=== PATIENT | male | born 1980 | race Hispanic/Latino ===

== ENCOUNTER 2022-02-24 17:06 | Emergency (ER) | payer BC ==
--- OUTSIDE RECORDS SUMMARY | 2022-02-24 17:09 | XMS REPORT | Continuity of Care Document ---
:1980 Author Organization [facility] t Address [address] [place] [address] Care Team Providers Name Role Phone PCP, PATIENT DOES NOT HAVE A Primary Care Physician UnavailWOLF Soto Attending Clinician Unavailable UNKNOWN, ATTENDING Attending Clinician Unavailable Chelsey Wise DO Attending Clinician Jens RAMOS, Alex Flores Attending Clinician Barbara Moctezuma MA Attending Clinician Unavailable Syk RAMOS, Stevan Martinez Attending Clinician [phone] Payers Payer Name Policy Type Policy Number Effective Date Expiration Date S [facility] BCBSTX PPO AND [id number] 2020 00:00:00 OUT OF STATE BCBS [facility] [id number] 2021 00:00:00 Problems Condition Condition Condition Status Onset Resolution Last Treating Co mments Source Name Details Category Date Date Treatment Clinician Date Bipolar Bipolar Disease Active Methodi disorder disorder 7-20 st in full in full 00:00: Hospita remission remission 00 l Chronic Chronic Disease Active Methodi bilateral bilateral 7-20 st low back low back 00:00: Hospit a pain pain 00 l without without sciatica sciatica Allergies, Adverse Reactions, Alerts Allergy Allergy Status Severity Reaction(s) Onset Inactive Treating Comm ents Source Name Type Date Date Clinician NO KNOWN Drug Active Univers ALLERGIE Class ity of S [facility] Family History Family Member Diagnosis Comments Start Date Stop Date Source Natural father Multiple myeloma [facility] Natural father Kidney disease Method [facility] Maternal grandfather [facility] Maternal grandmother [facility] Natural mother Hyperlipidemia Method [facility] Paternal grandfather Diabetes [facility] Paternal grandmother Diabetes [facility] Paternal grandmother Stroke [facility] Paternal uncle Stroke [facility] Natural brother GERD [facility] Social History Social Habit Start Date Stop Date Quantity Comments Source Tobacco use and 2021-10-31 2021-10-31 Smokeless tobacco [facility] exposure 00:00:00 00:00:00 non-user Hospital Alcohol intake 2021-10-31 2021-10-31 .86 /d [facility] 00[facility]00 [facility] Sex [facility]igned At [birth year] [facility] Smoking Status Start Date Stop Date Source Never smoked tobacco [facility] Medications Ordered Filled Start Stop Current Ordering Indication Dosage Frequency Signature Comments Components Source Medication Medication Date Date Medication? Clinician (SIG) Name Name ARIPiprazol Yes TK 1 T PO M ethodi e (ABILIFY) 6-[address] 2 MG tablet 00:00: Hospit a 00 l ARIPiprazol 2018-0 2021- No TK 1 T PO Methodi e (ABILIFY) 6-14 01-[address] 2 MG tablet 00:00: 00:00 Hospi ta 00 :00 l Immunizations Ordered Immunization Filled Immunization Date Status Commen ts Source Name Name [employer] COVID-19 MRNA 2020-09-23 Completed [facility] VACCINATION 00:00:00 [facility] Covid-19 Vaccine 2020-08-[address] [facility] MRNA (PF) 12yr+ 00:00:00 Medical C enter (Pfizer/BioNTech)(IM M601) Covid-19 Vaccine 2020-08-[address] [facility] Mrna (Pf) 00:00:00 [facility] Center (Pfizer/biontech) Covid-19 Vaccine 2020-08-[address] [facility] MRNA (PF) 12yr+ 00:00:00 Medical C enter (Pfizer/BioNTech)(IM M601) Vital Signs Vital Name Observation Time Observation Value Comments Source Body weight 2021-10-31 17:45:00 75.751 kg [facility] BMI 2021-10-31 17:45:00 24.66 kg/m2 [facility] Oxygen saturation in 2021-10-31 17:45:00 98 /min [facility] Arterial blood by Pulse oximetry Systolic blood 2021-10-31 17:45:00 124 mm[Hg] Method [facility] pressure Diastolic blood 2021-10-31 17:45:00 86 mm[Hg] [facility] pressure Heart rate 2021-10-31 17:45:00 79 /min [facility] Body temperature 2021-10-31 17:45:00 36.72 Ana [facility] Body height 2021-10-31 17:45:00 175.3 cm [facility] Systolic blood 2020-10-07 15:22:00 127 mm[Hg] Method [facility] pressure Diastolic blood 2020-10-07 15:22:00 87 mm[Hg] [facility] pressure Heart rate 2020-10-07 15:22:00 77 /min [facility] Body temperature 2020-10-07 15:22:00 36.89 Ana [facility] Respiratory rate 2020-10-07 15:22:00 16 /min [facility] Body height 2020-10-07 15:22:00 175.3 cm [facility] Body weight 2020-10-07 15:22:00 77.565 kg [facility] BMI 2020-10-07 15:22:00 25.25 kg/m2 [facility] Oxygen saturation in 2020-10-07 15:22:00 97 /min [facility] Arterial blood by Pulse oximetry Procedures Procedure Date / Time Performing Clinician Source Performed CBC WITH PLATELET AND 2021-10-31 18:08:00 Chelsey Wise [facility] DIFFERENTIAL COMPREHENSIVE METABOLIC 2021-10-31 18:08:00 Chelsey Wise [facility] PANEL URINALYSIS, AUTOMATED 2021-10-31 18:08:00 Chelsey Wise [facility] WITH MICROSCOPY HEMOGLOBIN A1C 2021-10-31 18:08:00 Chelsey Wise ospital LIPID PANEL 2021-10-31 18:08:00 [facility] TSH REFLEX TO T4F 2021-10-31 18:08:00 [facility] VITAMIN D 25 HYDROXY 2021-10-31 18:08:00 [facility] LEVEL PSA, TOTAL AND FREE 2021-10-31 18:08:00 [facility] HEPATITIS C ANTIBODY 2021-10-31 18:08:00 [facility] MICROSCOPIC EXAMINATION 2021-10-31 18:08:00 DanilomaChelsey [facility] US ABDOMINAL LIMITED 2021-03-03 19:59:01 [facility] COMPREHENSIVE METABOLIC 2021-03-03 15:30:00 [facility] PANEL CBC WITH PLATELET AND 2021-03-03 15:30:00 [facility] DIFFERENTIAL URINALYSIS, COMPLETE, 2021-03-03 15:30:00 [facility] WITH REFLEX TO CULTURE MICROSCOPIC EXAMINATION 2021-03-03 15:30:00 [facility] TESTOSTERONE LEVEL, FREE 2020-10-07 16:41:00 [facility] AND TOTAL, MALE CBC WITH PLATELET AND 2020-10-07 16:41:00 [facility] DIFFERENTIAL COMPREHENSIVE METABOLIC 2020-10-07 16:41:00 [facility] PANEL HEMOGLOBIN A1C 2020-10-07 16:41:00 [facility] LIPID PANEL 2020-10-07 16:41:00 [facility] TSH REFLEX TO T4F 2020-10-07 16:41:00 [facility] URINALYSIS, COMPLETE, 2020-10-07 16:41:00 [facility] WITH REFLEX TO CULTURE MICROSCOPIC EXAMINATION 2020-10-07 16:41:00 [facility] Plan of Care Planned Activity Planned Date Details Comments Source Future Scheduled 2021-11-12 HEPATITIS B VACCINES [facility] Test 17:23:52 (1 of 3 - 3-dose series) [code = HEPATITIS B VACCINES (1 of 3 - 3-dose series)] Future Scheduled 2021-11-12 COVID-19 VACCINE (3 [facility] Test 17:23:52 - Booster for Pfizer series) [code = COVID-19 VACCINE (3 - Booster for Pfizer series)] Future Scheduled 2021-11-12 INFLUENZA VACCINE [facility] Test 17:23:52 [code = INFLUENZA VACCINE] Future Scheduled 2021-10-[address] [facility] Test 00:00:00 (#1) [code = [facility] INFLUENZA VACCINE (#1)] Future Scheduled 2021-10-[address] [facility] Test 00:00:00 (#1) [code = [facility] INFLUENZA VACCINE (#1)] Future Scheduled 2021-02-[address] [facility] Test 00:00:00 (12+) [code = [facility] DEPRESSION SCREENING (12+)] Future Scheduled 2021-02-[address] [facility] Test 00:00:00 (12+) [code = [facility] DEPRESSION SCREENING (12+)] Future Scheduled 2020-10-[address] [facility] Test 00:00:00 (#1) [code = [facility] INFLUENZA VACCINE (#1)] Future Scheduled 2020-09-06 COVID-19 VACCINE ([address] [facility] Test 00:00:00 - Pfizer series) [facility] [code = COVID-19 VACCINE (2 - Pfizer series)] Future Scheduled 2020-09-06 COVID-19 VACCINE ([address] [facility] Test 00:00:00 - Pfizer series) [facility] [code = COVID-19 VACCINE (2 - Pfizer series)] Future Scheduled 2020-09-06 COVID-19 VACCINE ([address] [facility] Test 00:00:00 - Pfizer 2-dose Medical Cent er series) [code = COVID-19 VACCINE (2 - Pfizer 2-dose series)] Future Scheduled 2020-02-[address] [facility] Test 00:00:00 (12+) [code = [facility] DEPRESSION SCREENING (12+)] Future Scheduled 2014-07-[address] [facility] Test 00:00:00 (procedure) [code = [facility] [id number]] Future Scheduled 2014-07-[address] [facility] Test 00:00:00 (procedure) [code = [facility] [id number]] Future Scheduled 2014-07-[address] [facility] Test 00:00:00 (procedure) [code = [facility] [id number]] Future Scheduled 1998-07-24 DTAP/TDAP/TD [facility] Test 00:00:00 VACCINES (1 - Tdap) Medical Center [code = DTAP/TDAP/TD VACCINES (1 - Tdap)] Future Scheduled 1998-07-24 DTAP/TDAP/TD [facility] Test 00:00:00 VACCINES (1 - Tdap) Medical Center [code = DTAP/TDAP/TD VACCINES (1 - Tdap)] Future Scheduled 1998-07-24 DTAP/TDAP/TD [facility] Test 00:00:00 VACCINES (1 - Tdap) Medical Center [code = DTAP/TDAP/TD VACCINES (1 - Tdap)] Future Scheduled 1997-07-[address] [facility] Test 00:00:00 SCREENING [code = Medical Ce nter HEPATITIS C SCREENING] Future Scheduled 1997-07-[address] [facility] Test 00:00:00 SCREENING [code = Medical Ce nter HEPATITIS C SCREENING] Future Scheduled 1997-07-[address] [facility] Test 00:00:00 SCREENING [code = Medical Ce nter HEPATITIS C SCREENING] Future Scheduled [address] [facility] Test 00:00:00 [facility] Scre[facility] (12+) [code = Tobacco Cessation Counseling and Screening (12+)] Future Scheduled [facility] Test screening (procedure) [code = 499295139] Future Scheduled COVID-19 VACCINE (2 [facility] Test - Pfizer 2-dose series) [code = COVID-19 VACCINE (2 - Pfizer 2-dose series)] Future Scheduled INFLUENZA VACCINE [facility] Test [code = INFLUENZA VACCINE] Encounters Start End Encounter Admission Attending Care Care Encounter Source Date/Time Date/Time Type Type Clinicians Facility Department ID 2021-11-13 Outpatient [facility] [id number] [place] 11:29:22 [id number] [facility] 2021-01-23 Outpatient FRANK [facility] [id number] [place] 08:32:48 [facility] 2021-01-19 Outpatient HAFLEZ, [facility] [id number] [place] 10:24:03 [facility] 2020-10-25 Outpatient HATERRELL, [facility] [id number] [place] 10:45:39 [facility] 2022-02-24 2022-02-24 Outpatient R MIREYA, [facility] [id number] Univers 16:30:00 16:30:00 ATTENDING ity [facility] 2021-12-01 2021-12-01 Outpatient HATERRELL, [facility] [id number] [place] 09:30:00 09:30:00 [facility] 2021-10-31 2021-10-31 Office Chelsey Wise 1.2.840.1 [id number] Methodi 13:00:00 13:16:18 Visit Omer [id number] 3.430.2.7 Hospit a .3.874474 l .8 2021-10-31 2021-10-31 Travel 1.2.840.1 [id number] [id number] Methodi 00:00:00 00:00:[address] 3.430.2.7 0.2.7.3.698 Ho spita .3.649814 084.8 l .8 2021-03-07 2021-03-07 Travel 1.2.840.1 1.2.879.594 [id number] Methodi 00:00:00 00:00:[address] 3.430.2.7 0.2.7.3.698 Ho spita .3.616379 084.8 l .8 2021-03-03 2021-03-03 Office Jens 1.2.840.1 [id number] Methodi 08:30:00 09:32:03 Visit Alex Mark 53795.1.[address] 3.430.2.7 Hospit a .3.031148 l .8 2021-03-03 2021-03-03 Orders Blacher, 1.2.840.1 [id number] Methodi 00:00:00 00:00:00 Only Alex Flores 53545.1.[address] 3.430.2.7 Hospit a .3.505644 l .8 2021-03-03 2021-03-03 Orders Moctezuma, 1.2.840.1 [id number] Methodi 00:00:00 00:00:00 Only Barbara 01272.1.[address] 3.430.2.7 Hospit a .3.935739 l .8 2020-10-07 2020-10-07 Office Jens, 1.2.840.1 [id number] Methodi 10:01:39 11:50:08 Visit Alex Flores 07914.1.[address] 3.430.2.7 Hospit a .3.161581 l .8 2020-08-16 2020-08-16 [facility] [id number] 12:52:33 12:55:15 on [facility] 2020-08-16 2020-08-16 Outpatient [facility] [id number] [facility] 00:00:00 00:00:00 Results Test Description Test Time Test Comments Results Result Comments Source Hemoglobin A1c 2021-11-01 14:11:00 Test Item Value Reference Range Interpretation Comme nts Hemoglobin A1C (test code 5.6 % 4.8-5.6 P rediabetes: 5.7 - 6.4 = 4548-4) Diabetes: >6.4 Glycemic control for tony lts with diabetes: <7.0 HARSHAL (test code = HARSHAL) Performed at: [facility] [id number] Director: Vick Galeano MD, Phone: [phone] [facility] [id number] 13:12:00 Test Item Value Reference Range Interpretation Comments Glucose (test code = 101 mg/dL 65-99 H 2345-7) BUN (test code = 13 mg/dL 6-24 3094-0) Creatinine (test code 0.91 mg/dL 0.76-1.27 = 2160-0) eGFR (test code = 108 mL/min/1.73 See_Comment [Autom ated 8257) message] The system which generated this result transmitted reference range : >=59. The reference range was not used to interpret this result as normal/abnormal . BUN/creatinine ratio 9-20 (test code = 3097-3) Sodium (test code = 142 mmol/L 243-154 6939-2) Potassium (test code 4.9 mmol/L 3.5-5.2 = 2823-3) Chloride (test code = 103 mmol/L 96-106 2075-0) CO2 (test code = 25 mmol/L 20-29 2027-9) Calcium (test code = 9.7 mg/dL 8.7-10.2 12558-9) Protein (test code = 7.4 g/dL 6-8.5 2885-2) Albumin, S (test code 4.9 g/dL 4-5 = 1751-7) Globulin, total (test 2.5 g/dL 1.5-4.5 code = 81567-9) Albumin/globulin 1.2-2.2 ratio (test code = 1759-0) Total bilirubin (test 0.4 mg/dL 0-1.2 code = 1974-2) Alkaline phosphatase See_Comment [Autom ated (test code = 6768-6) message ] The system which generated this result transmitted reference range : 44 - 121 IU/L. The reference range was not used to interpr et this result as normal/abnormal . AST (test code = See_Comment [Automated 1919-09) message] The system which generated this result transmitted reference range : 0 - 40 IU/L. Th e reference range was not used to interpret this result as normal/abnormal . ALT (test code = See_Comment [Automated 1741-) message] The system which generated this result transmitted reference range : 0 - 44 IU/L. Th e reference range was not used to interpret this result as normal/abnormal . HARSHAL (test code = HARSHAL) Performed at: [facility] [id number] Director: Vick Galeano MD, Phone: [phone] Lab Interpretation Abnormal (test code = 80555-6) [facility]enton[facility] [id number] 13:12:00 Test Item Value Reference Range Interpretation Comments Cholesterol (test 238 mg/dL 100-199 H code = 2093-3) Triglycerides (test 197 mg/dL 0-149 H code = 2571-8) HDL cholesterol (test 42 mg/dL See_Comment [Auto mated code = 2085-9) message] The system which generated this result transmitted reference range : >=39. The reference range was not used to interpret this result as normal/abnormal . VLDL cholesterol yunior 36 mg/dL 5-40 (test code = 28984-5) LDL Chol Calc ([facility]) 160 mg/dL 0-99 H (test code = 76344-2) Non-HDL cholesterol 196 mg/dL 0-129 H (test code = 06602-6) HARSHAL (test code = HARSHAL) Performed at: [facility] [id number] Director: Vick Galeano MD, Phone: [phone] Lab Interpretation Abnormal (test code = 69393-6) [facility], total and [id number] 13:12:00 Test Item Value Reference Range Interpretation Comments PSA (test code 0.7 ng/mL 0-4 Gopi ECLIA = 2857-1) methodology.Acc ording to the [place] [employer], Se rum PSA shoulddecrease and remain at undet ectable levels after radicalprostate ctomy. The AUA defines biochemical rec urrence as an initialPS A value 0.2 ng/mL or gr eater followed by a subsequent confirmatoryPSA value 0.2 ng/mL or greater.Values obtained with different assay methods or kits cannot be usedinterchange ably. Results cannot be interpreted as absolute eviden ceof the presence or absence of mustapha gnant disease. PSA, free (test 0.13 ng/mL N/A Gopi ECLIA code = 82447-5) methodology. PSA, free 18.6 % The table below lists percent (test the probabilit y of code = 05701-8) prostate can cer formen with non-suspic ious CRUZITO results and total PSA between4 an d 10 ng/mL, by patie nt age (Newton et al , MERCEDES 1998,279:1542). % Free PSA 50-64 yr 65 -75 yr 0.00-10.00% 56% 55% 10.01-15.00% 24 % 35% 15.01-20.00% 17 % 23% 20.01-25.00% 10 % 20% >25.00% 5% 9%Pl ease note: Newton et al did not make sp ecific recommendations regarding the u se of percent free PS A for any other popul ation of men. HARSHAL (test code Performed at: 01 = HARSHAL) - [facility] [id number] [place], [place] [id number] Director: Vick Galeano MD, Phone: [phone] [facility] with platelet and [id number] 13:12:00 Test Item Value Reference Range Interpretation Comments WBC (test code = See_Comment [Automated 0231-2) message] The system which generated this result transmit melissa reference range : 3.4 - 10.8 x10E3/uL. The reference range was not used to interpret this result as normal/abnormal . RBC (test code = See_Comment [Automated 211-8) message] The system which generated this result transmit melissa reference range : 4.14 - 5.80 x10E6/uL. The reference range was not used to interpret this result as normal/abnormal . HGB (test code = 14.6 g/dL 13-17.7 718-7) HCT (test code = 43.1 % 37.5-51 4544-3) MCV (test code = 90 fL 79-97 787-2) MCH (test code = 30.6 pg 26.6-33 785-6) MCHC (test code = 33.9 g/dL 31.5-35.7 786-4) RDW (test code = 13.1 % 11.6-15.4 788-0) Platelet count See_Comment [Automated (test code = 117-3) message] The system which generated this result transmit melissa reference range : 150 - 450 x10E3/uL. The reference range was not used to interpret this result as normal/abnormal . Neutrophils (test 64 % Not Estab. code = 770-8) Lymphocytes (test 26 % Not Estab. code = 736-9) Monocytes (test 8 % Not Estab. code = 5905-5) Eosinophils (test 1 % Not Estab. code = 713-8) Basophils (test 0 % Not Estab. code = 706-2) Neutrophils, See_Comment [Automated absolute (test code message] The = 751-8) system which generated this result transmit melissa reference range : 1.4 - 7.0 x10E3/uL. The reference range was not used to interpret this result as normal/abnormal . Lymphocytes, See_Comment [Automated absolute (test code message] The = 731-0) system which generated this result transmit melissa reference range : 0.7 - 3.1 x10E3/uL. The reference range was not used to interpret this result as normal/abnormal . Monocytes, absolute See_Comment [Automa melissa (test code = 742-7) message] The system which generated this result transmit melissa reference range : 0.1 - 0.9 x10E3/uL. The reference range was not used to interpret this result as normal/abnormal . Eosinophils, See_Comment [Automated absolute (test code message] The = 711-2) system which generated this result transmit melissa reference range : 0.0 - 0.4 x10E3/uL. The reference range was not used to interpret this result as normal/abnormal . Basophils, absolute See_Comment [Automa melissa (test code = 704-7) message] The system which generated this result transmit melissa reference range : 0.0 - 0.2 x10E3/uL. The reference range was not used to interpret this result as normal/abnormal . Immature 1 % Not Estab. granulocytes (test code = 67079-1) Immature See_Comment [Automated granulocytes, message] The absolute (test code system w [facility] = 33710-5) generated this result transmit melissa reference range : 0.0 - 0.1 x10E3/uL. The reference range was not used to interpret this result as normal/abnormal . HARSHAL (test code = Performed at: HARSHAL) - [facility] [address] [id number] Director: Vick Galeano MD, Phone: [phone] [facility], automated with [id number] 13:12:00 Test Item Value Reference Range Interpretation Comments Specific gravity, 1.005-1.03 urine (test code = 5811-5) pH, urine (test 5-7.5 code = 5803-2) Color, UA (test Yellow Yellow code = 5778-6) Appearance (test Clear Clear code = 5767-9) WBC esterase, urine Negative Negative (test code = 5799-2) Protein, UA (test Negative Negative/Trace code = 50103-0) Glucose, urine Negative Negative (test code = 46856-2) Ketones, UA (test Negative Negative code = 2514-8) Occult blood, urine Negative Negative (test code = 5794-3) Bilirubin, UA (test Negative Negative code = 5770-3) Urobilinogen, UA 0.2 mg/dL 0.2-1 (test code = 39725-1) Nitrite, UA (test Negative Negative code = 5802-4) Microscopic See below: Microscopic was examination (test indicated and was code = 71986-3) performed. HARSHAL (test code = Performed at: HARSHAL) - [facility] [address] [id number] Director: Vick Galeano MD, Phone: [phone] [facility]enton[facility]it[facility] D 25 hydroxy [id number] 13:12:00 Test Item Value Reference Range Interpretation Comments Vitamin D, 16.3 ng/mL 30-100 L Vitamin D 25-hydroxy (test deficiency has been code = 00269-0) defined by [facility] [place] [facility] and an Endocrine Socie ty practice guidel ine as alevel of se rum 25-OH vitamin D less than 20 ng /mL (1,2).The Endoc rine Society went on to further define vitamin Dinsufficiency as a level between 2 1 and 29 ng/mL (2 ).1. IOM ([place] of Medicine). 2010 . Dietary referen ce intakes for yunior cium and D. [place]: The [employer] .2. Ramiro MF, Angelo herrera [place], Pauline carrasco BUCIO, et al. Evaluation, treatment, and prevention of vitamin D deficiency: an Endocrine Socie ty clinical practi ce guideline. JCEM . 2010; 96(7):1911-30. HARSHAL (test code = Performed at: HARSHAL) - [facility] [address] [place], [place] [id number] Director: Vick Galeano MD, Phone: [phone] Lab Interpretation Abnormal (test code = 41253-1) [facility]enton[facility]atitis C [id number] 13:12:00 Test Item Value Reference Range Interpretation Comments Hepatitis C Ab <0.1 See_Comment Negative: < 0.8 (test code = Indeterminate: 0.8 - 10619-8) 0.9 Positive: > 0.9 HCV antibody al one does not differentiate between previou s resolved infect ion and active infection. The CDC and current cli nical guidelines chase mmend that a positive HCV antibody result be followed up wit h an HCV RNA test to support the diagnosis of ac jessica HCV infection. [facility] offers Hepatitis C Vir us (HCV) RNA, Diagnosis, KAILA (236638) and Hepatitis C Vir us (HCV) Antibody with reflex to Quantitative Real-time PCR (738698). [Auto mated message] The sy stem which generated this result transmit melissa reference range : 0.0 - 0.9 s/co rati o. The reference r yenni was not used to interpret this result as normal/abnormal . HARSHAL (test code = Performed at: 01 HARSHAL) - [facility] [address] [id number] Director: Vick Galeano MD, Phone: [phone] [facility]enton[facility]sc[facility] [id number] 13:12:00 Test Item Value Reference Range Interpretation Comments WBC, UA (test code None seen See_Comment [Automat ed = 5821-4) message] The system which generated this result transmit melissa reference range : 0 - 5 /hpf. The reference range was not used to interpret this result as normal/abnormal . RBC, UA (test code None seen See_Comment [Automat ed = 38290-8) message] The system which generated this result transmit melissa reference range : 0 - 2 /hpf. The reference range was not used to interpret this result as normal/abnormal . Epithelial cells None seen See_Comment [Automated (non renal) (test message] T he code = 5787-7) system which generated this result transmit melissa reference range : 0 - 10 /hpf. The reference range was not used to interpret this result as normal/abnormal . Casts (test code = None seen None seen /lpf 10755-5) Bacteria, UA (test None seen None seen/Few code = 5769-5) HARSHAL (test code = Performed at: - ) [facility] [id number] Director: Vick Galeano MD, Phone: [phone] [facility] reflex to [id number] 13:12:00 Test Item Value Reference Range Interpretation Comments TSH (test code See_Comment [Automated m essage] = 07496-3) The system [employer] generated this result transmit melissa reference range : 0.450 - 4.500 uIU/mL. The reference range was not used to interpret this result as normal/abnormal . HARSHAL (test code Performed at: - = HARSHAL) [facility] [id number] Director: Vick Galeano MD, Phone: [phone] [facility]entonURINALYSIS, COMPLETE, WITH REFLEX TO [id number] 14:11:00 Test Item Value Reference Range Interpretation Comments Specific gravity, 1.005-1.03 urine (test code = 2965-2) pH, urine (test 5-7.5 code = 5803-2) Color, UA (test Yellow Yellow code = 5778-6) Appearance (test Clear Clear code = 5767-9) WBC esterase, urine Negative Negative (test code = 5799-2) Protein, UA (test Negative Negative/Trace code = 37214-9) Glucose, urine Negative Negative (test code = 2349-9) Ketones, UA (test Negative Negative code = 2514-8) Occult blood, urine Negative Negative (test code = 5794-3) Bilirubin, UA (test Negative Negative code = 5770-3) Urobilinogen, UA 0.2 mg/dL 0.2-1 (test code = 04331-7) Nitrite, UA (test Negative Negative code = 5802-4) Microscopic See below: Microscopic was examination (test indicated and was code = 79562-0) performed. Urinalysis reflex Comment This speci men will (test code = 2386) not refle x to a Urine Culture. HARSHAL (test code = Performed at: HARSHAL) - [facility] [id number] Director: Vick Galeano MD, Phone: [phone] [facility] and total, [id number] 17:09:00 Test Item Value Reference Range Interpretation Comments Testosterone (test 292 ng/dL 264-916 Adult mal e code = 2986-8) reference interval is bas ed on a population ofhealthy nonobese males (BMI <30) betwe en 19 and 39 years old.Ursula, et.al. JCEM 2017,102;1161-1 17 3. PMID: [id number]. Testosterone, free 7.4 pg/mL 6.8-21.5 (test code = 2991-8) HARSHAL (test code = Performed at: 01 HARSHAL) - [facility] [address] [id number] Director: Vick Galeano MD, Phone: [phone] ed at: 02 - [facility] [id number] Director: Sandra Montaño MD, Phone: [phone] [facility] DentonHemoglobin [id number] 15:10:00 Test Item Value Reference Range Interpretation Comments Hemoglobin A1C 5.3 % 4.8-5.6 Prediabetes: (test code = 5.7 - 6.4 4548-4) Diabetes: >6.4 Glycemic contro l for adults with diabetes: <7.0 HARSHAL (test code = Performed at: - HARSHAL) [facility] [address] [id number] Director: Vick Galeano MD, Phone: [phone] [facility] [id number] 15:10:00 Test Item Value Reference Range Interpretation Comments WBC, UA (test code None seen See_Comment [Automat ed = 5821-4) message] The system which generated this result transmit melissa reference range : 0 - 5 /hpf. The reference range was not used to interpret this result as normal/abnormal . RBC, UA (test code None seen See_Comment [Automat ed = 77489-0) message] The system which generated this result transmit melissa reference range : 0 - 2 /hpf. The reference range was not used to interpret this result as normal/abnormal . Epithelial cells None seen See_Comment [Automated (non renal) (test message] T he code = 5787-7) system which generated this result transmit melissa reference range : 0 - 10 /hpf. The reference range was not used to interpret this result as normal/abnormal . Casts (test code = None seen None seen /lpf 84708-6) Bacteria, UA (test None seen None seen/Few code = 5769-5) HARSHAL (test code = Performed at: ) [facility] [id number] Director: Vick Galeano MD, Phone: [phone] [facility], COMPLETE, WITH REFLEX TO [id number] 15:10:00 Test Item Value Reference Range Interpretation Comments Specific gravity, 1.005-1.030 urine (test code = 2965-2) pH, urine (test 5.0-7.5 code = 5803-2) Color, UA (test Yellow Yellow code = 5778-6) Appearance (test Clear Clear code = 5767-9) WBC esterase, urine Negative Negative (test code = 5799-2) Protein, UA (test Negative Negative/Trace code = 14034-4) Glucose, urine Negative Negative (test code = 2349-9) Ketones, UA (test Negative Negative code = 2514-8) Occult blood, urine Negative Negative (test code = 5794-3) Bilirubin, UA (test Negative Negative code = 5770-3) Urobilinogen, UA 0.2 mg/dL 0.2-1.0 (test code = 05288-2) Nitrite, UA (test Negative Negative code = 5802-4) Microscopic See below: Microscopic was examination (test indicated and was code = 10978-4) performed. Urinalysis reflex Comment This speci men will (test code = 2386) not refle x to a Urine Culture. HARSHAL (test code = Performed at: HARSHAL) - [facility] [address] [id number] Director: Vick Galeano MD, Phone: [phone] [facility] reflex to [id number] 07:07:00 Test Item Value Reference Range Interpretation Comments TSH (test code See_Comment [Automated m essage] = 55574-7) The system whic h generated this result transmit melissa reference range : 0.450 - 4.500 uIU/mL. The reference range was not used to interpret this result as normal/abnormal . HARSHAL (test code Performed at: 01 - = HARSHAL) [facility] [address] [place], [place] [id number] Director: Vick Galeano MD, Phone: [phone] [facility] DentonComprehensive metabolic [id number] 06:07:00 Test Item Value Reference Interpretation Comments Range Glucose (test code = 95 mg/dL 65-99 2345-7) BUN (test code = 10 mg/dL 6-24 3094-0) Creatinine (test 0.95 mg/dL 0.76-1.27 code = 2160-0) EGFR Non-Afr. 99 mL/min/1.73 >59 Malaysian (test code = 2775) EGFR 114 mL/min/1.73 >59 [facility] cu rrently Malaysian (test code reports eGFR in = 2774) compliance with the current recommendations of the [employer]. Lab anais will update reporting as ne w guidelines are published from the NKF-ASN Task fo rce. BUN/creatinine ratio 9-20 (test code = 3097-3) Sodium (test code = 138 mmol/L 655-127 3732-2) Potassium (test code 4.4 mmol/L 3.5-5.2 = 2823-3) Chloride (test code 100 mmol/L 96-106 = 2075-0) CO2 (test code = 22 mmol/L 20-29 8-9) Calcium (test code = 9.6 mg/dL 8.7-10.2 29982-6) Protein (test code = 7.8 g/dL 6.0-8.5 2885-2) Albumin, S (test 4.7 g/dL 4.0-5.0 code = 1751-7) Globulin, total 3.1 g/dL 1.5-4.5 (test code = 53086-7) Albumin/globulin 1.2-2.2 ratio (test code = 1759-0) Total bilirubin 0.4 mg/dL 0.0-1.2 (test code = 1975-2) Alkaline phosphatase See_Comment [Autom ated message] (test code = 6768-6) The s tem which generated this result transmit melissa reference range : 48 - 121 IU/L. The reference range was not used to interpret this result as normal/abnormal . AST (test code = See_Comment [Automated message] 1920-8) The system ic [employer] generated this result transmit melissa reference range : 0 - 40 IU/L. The reference range was not used to interpret this result as normal/abnormal . ALT (test code = See_Comment H [Automated message] 1742-6) The system [employer] generated this result transmit melissa reference range : 0 - 44 IU/L. The reference range was not used to interpret this result as normal/abnormal . HARSHAL (test code = Performed at: HARSHAL) - [facility] [id number] Director: Vick Galeano MD, Phone: [phone] Lab Interpretation Abnormal (test code = 35944-6) [facility] DentonLipid [id number] 06:07:00 Test Item Value Reference Range Interpretation Comments Cholesterol (test code = 224 mg/dL 100-199 H 3-3) Triglycerides (test code 328 mg/dL 0-149 H = 2571-8) HDL cholesterol (test 37 mg/dL >39 L code = 2085-9) VLDL cholesterol yunior 59 mg/dL 5-40 H (test code = 37506-4) LDL Chol Calc (NIH) (test 128 mg/dL 0-99 H code = 89020-7) Non-HDL cholesterol (test 187 mg/dL 0-129 H code = 07703-9) HARSHAL (test code = HARSHAL) Performed at: - [facility] [address] [id number] Director: Vick Galeano MD, Phone: [phone] Lab Interpretation (test Abnormal code = 71596-7) [facility] DentonCB with platelet and [id number] 05:06:00 Test Item Value Reference Range Interpretation Comments WBC (test code = See_Comment H [Automated 7781-2) message] The system which generated this result transmitted reference range : 3.4 - 10.8 x10E3/uL. The reference range was not used to interpret this result as normal/abnormal . RBC (test code = See_Comment [Automated 819-8) message] The system which generated this result transmitted reference range : 4.14 - 5.80 x10E6/uL. The reference range was not used to interpret this result as normal/abnormal . HGB (test code = 14.9 g/dL 13.0-17.7 718-7) HCT (test code = 42.8 % 37.5-51.0 4544-3) MCV (test code = 91 fL 79-97 787-2) MCH (test code = 31.6 pg 26.6-33.0 785-6) MCHC (test code = 34.8 g/dL 31.5-35.7 786-4) RDW (test code = 13.8 % 11.6-15.4 788-0) Platelet count (test See_Comment [Autom ated code = 777-3) message] The system which generated this result transmitted reference range : 150 - 450 x10E3/uL. The reference range was not used to interpret this result as normal/abnormal . Neutrophils (test 74 % Not Estab. code = 770-8) Lymphocytes (test 18 % Not Estab. code = 736-9) Monocytes (test code 6 % Not Estab. = 5905-5) Eosinophils (test 0 % Not Estab. code = 713-8) Basophils (test code 1 % Not Estab. = 706-2) Neutrophils, absolute See_Comment H [Auto mated (test code = 751-8) message] The system which generated this result transmitted reference range : 1.4 - 7.0 x10E3/uL. The reference range was not used to interpret this result as normal/abnormal . Lymphocytes, absolute See_Comment [Auto mated (test code = 731-0) message] The system which generated this result transmitted reference range : 0.7 - 3.1 x10E3/uL. The reference range was not used to interpret this result as normal/abnormal . Monocytes, absolute See_Comment [Automa melissa (test code = 742-7) message] The system which generated this result transmitted reference range : 0.1 - 0.9 x10E3/uL. The reference range was not used to interpret this result as normal/abnormal . Eosinophils, absolute See_Comment [Auto mated (test code = 711-2) message] The system which generated this result transmitted reference range : 0.0 - 0.4 x10E3/uL. The reference range was not used to interpret this result as normal/abnormal . Basophils, absolute See_Comment [Automa melissa (test code = 704-7) message] The system which generated this result transmitted reference range : 0.0 - 0.2 x10E3/uL. The reference range was not used to interpret this result as normal/abnormal . Immature granulocytes 1 % Not Estab. (test code = 22353-4) Immature grans (abs) See_Comment [Autom ated (test code = 94333-5) messag e] The system which generated this result transmitted reference range : 0.0 - 0.1 x10E3/uL. The reference range was not used to interpret this result as normal/abnormal . HARSHAL (test code = HARSHAL) Performed at: [facility] [id number] Director: Vick Galeano MD, Phone: [phone] Lab Interpretation Abnormal (test code = 48163-4) [facility]
[2022-02-24 18:39] LABS: Urine Blood Negative (Negative); Urine Glucose Negative (Negative); Urine Protein Negative (Negative); Urine Specific Gravity 1.025 (1.005-1.030); Urine pH 7.5 (5.0-7.0)
[2022-02-24 19:02] LABS: Absolute Lymphocytes (CBC) 3.1 K/uL (0.7-4.9); Hematocrit 38.8 % (39.6-49.0); Lymphocytes % 30.3 % (15.3-44.8); MCV 87.6 fL (80-100); MPV 8.4 fL (7.6-11.3); RBC Red Blood Cell Count 4.43 M/uL (4.33-5.43)
[2022-02-24 19:20] LABS: Albumin 3.9 g/dL (3.4-5.0); Bilirubin Total 0.2 mg/dL (0.2-1.0); Protein, Total 7.4 g/dL (6.4-8.2)
--- NOTE | 2022-02-24 20:06 | RAD REPORT ---
EXAM DESCRIPTION: CTAbdomen Pelvis W Contrast - 02/24/2022 7:47 pm CLINICAL HISTORY: right lower abdominal pain, groin pain COMPARISON: No comparisons TECHNIQUE: CT of the abdomen and pelvis was performed. All CT scans are performed using dose optimization technique as appropriate and may include automated exposure control or mA/KV adjustment according to patient size. FINDINGS: Lower chest: No acute abnormality. Liver: Several hemangiomas are present in the liver. These demonstrate discontinuous peripheral nodul ar enhancement and fill in from arterial to portal venous phase. . Biliary: No biliary ductal dilatation. Stomach: No significant focal abnormality. Duodenum: No significant focal abnormality. Pancreas: No significant abnormality. Spleen: No significant abnormality. Adrenal: No suspicious lesions. Kidney/ureter: No hydronephrosis. No renal calculi. Too small to characterize and/or benign appearing renal lesions are noted. Retroperitoneum: No retroperitoneal adenopathy. Vascular: No aneurysm. Bowel: Normal appendix.. Peritoneum: No ascites or free air. No inguinal hernia appreciated. Bladder: Grossly unremarkable. Reproductive: No adnexal masses. Bones: No acute fracture. Other: n/a IMPRESSION: No acute intra-abdominal or pelvic finding. Normal appendix. No urinary tract calculi id entified.
--- NOTE | 2022-02-24 20:15 | ER ---
Nurse's Notes [facility] Name: Yamil Almaraz Age: 41 yrs Sex: Male : 1980 Arrival Date: 02/24/2022 Time: 17:11 Bed 6 Private MD: Diagnosis: Groin pain Presentation: 02/24 18:17 Chief complaint: Patient states: RLQ pain that began today, states hx of inguinal vg1 hernia. Denies NVD. Coronavirus screen: Vaccine status: Patient reports receiving the 2nd dose of the covid vaccine. Client denies travel out of the [place] in the last 14 days. Ebola Screen: Patient negative for fever greater than or equal to 101.5 degrees Fahrenheit, and additional compatible Ebola Virus Disease symptoms. Initial Sepsis Screen: Does the patient meet any 2 criteria? No. Patient's initial sepsis screen is negative. Does the patient have a suspected source of infection? No. Patient's initial sepsis screen is negative. Risk Assessment: Do you want to hurt yourself or someone else? Patient reports no desire to harm self or others. Onset of symptoms was February 24, 2022. 18:17 Method Of Arrival: Ambulatory vg1 18:17 Acuity: CAN 3 vg1 Triage Assessment: 18:19 General: Appears uncomfortable, Behavior is calm, cooperative. Pain: Complains of pain vg1 in right lower quadrant Pain currently is 7 out of 10 on a pain scale. Pain began today. GI: Reports BM yesterday Patient currently denies diarrhea, nausea, vomiting. : Denies burning with urination. Historical: - Allergies: 18:19 No Known Allergies; vg1 - Home Meds: 18:19 None [Active]; vg1 - PMHx: 18:19 Inguinal hernia; vg1 - PSHx: 18:19 None; vg1 - Immunization history:: Client reports receiving the 2nd dose of the Covid vaccine. - Social history:: Smoking status: Patient denies any tobacco usage or history of. Screenin:52 [facility] ED Fall Risk Assessment (Adult) Score/Fall Risk Level 0 - 2 = Low Risk hb Oriented to surroundings, Maintained a safe environment. Abuse screen: Denies threats or abuse. Denies injuries from another. Nutritional screening: No deficits noted. Tuberculosis screening: No symptoms or risk factors identified. Assessment: 18:52 General: Appears in no apparent distress. Behavior is calm, cooperative. Pain: Pain hb currently is 6 out of 10 on a pain scale. Neuro: Level of Consciousness is awake, alert, obeys commands, Oriented to person, place, time, situation. Cardiovascular: Patient's skin is warm and dry. Respiratory: Respiratory effort is even, unlabored, Respiratory pattern is regular, symmetrical. GI: Reports lower abdominal pain. : Reports groin pain. EENT: No signs and/or symptoms were reported regarding the EENT system. Derm: Skin is pink, warm \T\ dry. Musculoskeletal: No signs and/or symptoms reported regarding the musculoskeletal system. 19:50 General: pt taken to CT. as6 19:50 General: Appears comfortable, Behavior is calm, cooperative. Pain: Complains of pain in ha1 suprapubic area Pain currently is 3 out of 10 on a pain scale. Neuro: Level of Consciousness is awake, alert, obeys commands, Oriented to person, place, time, situation. Cardiovascular: Patient's skin is warm and dry. Respiratory: Respiratory effort is even, unlabored, Respiratory pattern is regular, symmetrical. GI: Reports lower abdominal pain. :. EENT: No deficits noted. No signs and/or symptoms were reported regarding the EENT system. Musculoskeletal: No signs and/or symptoms reported regarding the musculoskeletal system. Circulation, motion, and sensation intact. Range of motion: intact in all extremities. Vital Signs: 18:17 BP 108 / 73; Pulse 56; Resp 15; Temp 98.1(TE); Pulse Ox 100% ; Weight 68.04 kg; Height vg1 5 ft. 9 in. (175.26 cm); Pain 6/10; 18:54 BP 115 / 85; Pulse 58; Resp 16; Pulse Ox 100% on R/A; Pain 6/10; hb 19:50 BP 99 / 76; Pulse 67; Resp 18 S; Pulse Ox 100% on R/A; as6 18:17 Body Mass Index 22.15 (68.04 kg, 175.26 cm) vg1 ED Course: 17:11 Patient arrived in ED. am2 17:15 Murray Ball PA is PHCP. [facility] 17:15 Marty Costello MD is Attending Physician. [facility] 18:19 Triage completed. vg1 18:19 Arm band placed on. vg1 18:45 Sheyla Jefferson, RN is Primary Nurse. hb 18:51 Inserted saline lock: 20 gauge in right antecubital area, using aseptic technique. hb Blood collected. 18:52 Patient has correct armband on for positive identification. hb 18:55 Bed in low position. Call light in reach. Side rails up X 1. Adult w/ patient. Pulse ox mm9 on. NIBP on. 18:55 Urine collected: clean catch specimen, cloudy. mm9 19:49 CT Abd/Pelvis - IV Contrast Only In Process Unspecified. EDMS 19:59 PHCP role handed off by Murray Ball PA kb 19:59 Velia Stewart FNP-C is PHCP. kb 20:11 PHCP role handed off by Velia Stewart FNP-C [facility] 20:11 Murray Ball PA is PHCP. [facility] 20:15 Porfirio Dukes MD is Referral Physician. [facility] 20:34 Primary Nurse role handed off by Sheyla Jefferson RN 20:37 Lilia Mack RN is Primary Nurse. ha1 20:39 No provider procedures requiring assistance completed. IV discontinued, intact, ha1 bleeding controlled, No redness/swelling at site. Pressure dressing applied. Administered Medications: No medications were administered Medication: 18:52 VIS not applicable for this client. hb Outcome: 20:15 Discharge ordered by . m 20:39 Discharged to home ambulatory, with family. ha1 20:39 Condition: stable 20:39 Discharge instructions given to patient, family, Instructed on discharge instructions, follow up and referral plans. medication usage, Demonstrated understanding of instructions, follow-up care, medications, Prescriptions given X 2. 20:40 Patient left the ED. ha1 Signatures: Dispatcher [employer] EDMS Velia Stewart FNP-C FNP-Ckb Mickail, Joel, PA PA jmm Baxter, Heather, Dinah Alaniz RN, Victoria, RN RN ousmane1 Amberly Burrows Ashby, RN RN as6 Lilia Mack RN RN ha1 Shasta Matias mm9
--- NOTE | 2022-02-24 20:15 | EDPHYS ---
Physician Documentation [facility] Name: Yamil Almaraz Age: 41 yrs Sex: Male : 1980 Arrival Date: 02/24/2022 Time: 17:11 Bed 6 Private MD: ED Physician Marty Costello HPI: 02/24 20:12 This 41 yrs old Male presents to ER via Ambulatory with complaints of Groin [facility] Pain. 20:12 Is a 41-year-old male with no chronic medical conditions that presents emerged [facility] with complaints of right groin pain beginning approximately day ago. Patient states pain is consistent with a previously diagnosed left inguinal hernia. Denies fever, vomiting, dysuria. Patient does have some mild right lower quadrant abdominal pain as well. Historical: - Allergies: 18:19 No Known Allergies; vg1 - Home Meds: 18:19 None [Active]; vg1 - PMHx: 18:19 Inguinal hernia; vg1 - PSHx: 18:19 None; vg1 - Immunization history:: Client reports receiving the 2nd dose of the Covid vaccine. - Social history:: Smoking status: Patient denies any tobacco usage or history of. ROS: 20:12 Constitutional: Negative for fever, chills, and weight loss, Cardiovascular: Negative [facility] for chest pain, palpitations, and edema, Respiratory: Negative for shortness of breath, cough, wheezing, and pleuritic chest pain. 20:12 Abdomen/GI: Positive for abdominal pain. 20:12 : Positive for 20:12 All other systems are negative. Exam: 20:13 Constitutional: This is a well developed, well nourished patient who is awake, alert, jmm and in no acute distress. Head/Face: atraumatic. Eyes: EOMI, no conjunctival erythema appreciated ENT: Moist Mucus Membranes Neck: Trachea midline, Supple Chest/axilla: Normal chest wall appearance and motion. Cardiovascular: Regular rate and rhythm. No edema appreciated Respiratory: Normal respirations, no respiratory distress appreciated 20:13 Back: Normal ROM Skin: General appearance color normal MS/ Extremity: Moves all extremities, no obvious deformities appreciated, no edema noted to the lower extremities Neuro: Awake and alert Psych: Behavior is normal, Mood is normal, Patient is cooperative and pleasant 20:13 Abdomen/GI: Inspection: abdomen appears normal, Bowel sounds: normal, Palpation: soft, mild abdominal tenderness, in the suprapubic area. Vital Signs: 18:17 BP 108 / 73; Pulse 56; Resp 15; Temp 98.1(TE); Pulse Ox 100% ; Weight 68.04 kg; Height vg1 5 ft. 9 in. (175.26 cm); Pain 6/10; 18:54 BP 115 / 85; Pulse 58; Resp 16; Pulse Ox 100% on R/A; Pain 6/10; hb 19:50 BP 99 / 76; Pulse 67; Resp 18 S; Pulse Ox 100% on R/A; as6 18:17 Body Mass Index 22.15 (68.04 kg, 175.26 cm) vg1 MDM: 17:17 Patient medically screened. [facility] 20:14 Data reviewed: vital signs, nurses notes. Counseling: I had a detailed discussion with rory the patient and/or guardian regarding: the historical points, exam findings, and any diagnostic results supporting the discharge/admit diagnosis, lab results, radiology results, the need for outpatient follow up, to return to the emergency department if symptoms worsen or persist or if there are any questions or concerns that arise at home. 02/24 17:18 Order name: CBC with Diff; Complete Time: 19:04 [facility] 02/24 17:18 Order name: CMP; Complete Time: 19:21 [facility] 02/24 17:18 Order name: Lipase; Complete Time: 19:21 [facility] 02/24 17:18 Order name: CT Abd/Pelvis - IV Contrast Only; Complete Time: 20:08 [facility] 02/24 17:18 Order name: IV Saline Lock; Complete Time: 18:50 [facility] 02/24 18:39 Order name: Urine Dipstick-Ancillary; Complete Time: 18:44 [facility] 02/24 17:18 Order name: Labs collected and sent; Complete Time: 18:50 [facility] 02/24 17:18 Order name: Urine Dipstick-Ancillary (obtain specimen); Complete Time: 18:42 [facility] Administered Medications: No medications were administered Disposition: 02/25 15:08 Co-signature as Attending Physician, Marty Costello MD. rn Disposition Summary: 02/24/22 20:15 Discharge Ordered Location: Home [facility] Condition: Stable [facility] Diagnosis - Groin pain [facility] Followup: rory - With: Porfirio Dukes MD - When: 2 - 3 days - Reason: Recheck today's complaints, Continuance of care, Re-evaluation by your physician Discharge Instructions: - Discharge Summary Sheet [facility] - Inguinal Hernia, Adult [facility] Forms: - Medication Reconciliation Form [facility] - Thank You Letter rory - Antibiotic Education rory - Prescription Opioid Use [facility] Prescriptions: - Diclofenac Sodium 75 mg Oral Tablet Sustained Release - take 1 tablet by ORAL route 2 times per day; 30 tablet; Refills: 0, Product [facility] Selection Permitted - orphenadrine citrate 100 mg Oral Tablet Sustained Release - take 1 tablet by ORAL route 2 times per day As needed; 20 tablet; Refills: 0, [facility] Product Selection Permitted Signatures: Dispatcher [employer] Murray Rudd PA PA jmm Nieto, Roman, MD MD rn Diane Archer RN RN vg1 Sofia Osorio MD MD sd2
[2022-02-24 20:44] VITALS: TEMP 98.1; O2SAT 100
[2022-02-24 20:47] VITALS: BP 99/76
== END 2022-02-24 20:40 | disposition home or self-care (01) ==
LOC: ER 17:06
DX: R10.31 Right lower quadrant pain (principal)
CPT/HCPCS: 85025; 36415; 81003; 83690; 80053; 74177; 99284; Q9967